=== PATIENT | female | born 1990 | race Two or more races ===

== ENCOUNTER 2025-06-11 10:25 | Inpatient (IN) | payer MEDICAID, OTHER ==
[~2025-06-11] VITALS: Ht 167.6 cm; Wt 77.8 kg
--- NOTE | 2025-06-11 10:43 | ED.PDOC ---
GI ASSESSMENT HPI Comments 35-year-old female who comes in with chief complaint of left lower quadrant and left upper quadrant pain that seems to have somewhat radiate towards the back. The patient states that the symptoms started approximately 1-1/2 weeks ago. She states that the pain is a 9/10. She does have a history of pancreatitis and states that the pain feels somewhat similar. The patient is also having some nausea and vomiting as well as some diarrhea and constipation somewhat off and on. She has some night sweats and chills and so she came to the emergency department's for evaluation at this time. Chief Complaint: Abdominal Pain Time Seen by MD: 10:30 Reviewed Notes: Nurses Notes, Medications, Allergies (No allergies to medications) Allergies: Coded Allergies: NO KNOWN ALLERGIES (Unverified , 06/11/25) Information Source: Patient Mode of Arrival: Ambulatory Timing: Days Duration: Since onset Prehospital treatment: None Quality: Aching, Cramping Vomitus: Bilious Stool: Watery Severity: Moderate Recent: None Recent Hx of: None Pain Location: LUQ, LLQ Modifying Factors: Nothing Associated sign and symptoms: Nausea, Vomiting, Diarrhea, Constipation, Abdominal Pain Past Medical History PAST MEDICAL HISTORY: Seizures Past Medical History (Other): Pancreatitis 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 Family History Family History: No family hx of Cancer, No family hx of DM, No family hx of Heart marie, No family hx of HTN Social History Smoker: Cigarettes Alcohol: Denies ETOH Use Drugs: Denies Drug Use Lives In: Home Constitutional: reports: chills, diaphoresis; denies: fatigue, fever, malaise, sweats, weakness, others EENTM: denies: blurred vision, double vision, ear bleeding, ear discharge, ear drainage, ear pain, ear ringing, eye pain, eye redness, hearing loss, mouth pain, mouth swelling, nasal discharge, nose bleeding, nose congestion, nose pain, photophobia, tearing, throat pain, throat swelling, voice changes, others Respiratory: denies: cough, hemoptysis, orthopnea, SOB at rest, shortness of breath, SOB with excertion, stridor, wheezing, others Cardiovascular: denies: chest pain, dizzy spells, diaphoresis, Dyspnea on exertion, edema, irregular heart beat, left arm pain, lightheadedness, palpitations, PND, syncope, others Gastrointestinal: reports: abdominal pain, nausea, vomiting; denies: abdomen distended, blood streaked bowels, constipated, diarrhea, dysphagia, difficulty swallowing, hematemesis, melena, poor appetite, poor fluid intake, rectal bleeding, rectal pain, others Genitourinary: denies: abnormal vagina bleeding, burning, dyspareunia, dysuria, flank pain, frequency, hematuria, incontinence, pain, , vagina dis charge, urgency, others Neurological: denies: dizziness, fainting, headache, left sided numbness, left sided weakness, numbness, paresthesia, pre-existing deficit, right sided numbness, right sided weakness, seizure, speech problems, tingling, tremors, weakness, others Musculoskeletal: denies: back pain, gout, joint pain, joint swelling, muscle pain, muscle stiffness, neck pain, others Integumetry: denies: bruises, change in color, change in hair/nails, dryness, laceration, lesions, lumps, rash, wounds, others Allergic/Immunocompromised: denies: Difficulty Healing, Frequent Infections, Hives, Itching, others Hematologic/Lymphatic: denies: anemia, blood clots, easy bleeding, easy bruising, swollen glands, others Endocrine: denies: excessive hunger, excessive sweating, excessive thirst, excessive urination, flushing, intolerance to cold, intolerance to heat, unexplained weight gain, unexplained weight loss, others Psychiatric: denies: anxiety, bipolar disorder, depression, hopeless, panic disorder, schizophrenia, sleepless, suicidal, others Physical Exam General Appearance: Moderate Distress HEENT: Normal ENT Inspection, Pharynx Normal, TMs Normal Neck: Full Range of Motion, Non-Tender, Normal, Normal Inspection Respiratory: Chest Non-Tender, Lungs Clear, No Accessory Muscle Use, No Respiratory Distress, Normal Breath Sounds Cardiovascular: No Edema, No JVD, No Murmur, No Gallop, Normal Peripheral Pulses, Regular Rate/Rhythm Breast Exam: Deferred Gastrointestinal: LLQ, LUQ, No Organomegaly, No Pulsatile Mass, Normal Bowel Sounds, Soft, Tenderness Genitalia: Deferred Pelvic: Deferred Rectal: Deferred Extremities: No calf tenderness, Normal capillary refill, Normal inspection, Normal range of motion, Non-tender, No pedal edema Musculoskeletal : Apperance: Normal Neurologic: Alert, guest service manager II-XII nml as Tested, No Motor Deficits, Normal Affect, Normal Mood, No Sensory Deficits Cerebellar Function: Normal Reflexes: Normal Skin: Dry, Normal Color, Warm Lymphatic: No Adenopathy Was a procedure done? Was a procedure done?: No GI differential Dx Differential Diagnosis: Appendicitis, Gastritis/PUD, Gastroenteritis, UTI, Urolithiasis X-Ray, Labs, Meds, VS Vital Signs Date Time Temp Pulse Resp B/P (MAP) Pulse Ox O2 Delivery O2 Flow Rate FiO2 06/11/25 11:25 83 18 106/74 06/11/25 11:22 83 18 99 Room Air 06/11/25 11:22 97.6 83 18 106/74 (85) 99 97.6 06/11/25 10:27 98.1 87 16 109/66 98 98.1 Lab Test 06/11/25 11:29 06/11/25 11:18 Range/Units Urine Color Light-yellow Yellow Urine Clarity Clear Clear Urine pH 6.0 5.0-9.0 Urine Specific [place] 1.009 1.001-1.035 Urine Protein Negative Negative Urine Ketones Negative Negative Urine Blood 1+ H Negative /uL Urine Nitrite Negative Negative Urine Bilirubin Negative Negative Urine Urobilinogen Normal Negative mg/dL Urine Leukocyte Esterase Trace Negative /uL Urine RBC 3 0 - 4 /hpf Urine Microscopic WBC 1 0-5 /HPF Urine Squamous Epithelial Cells Mod <5 /hpf Urine Bacteria Few H None Seen /hpf Urine Glucose Normal Normal mg/dL White Blood Count 5.6 4.4-10.8 10^3/uL Red Blood Count 4.67 4.0-5.20 10^6/uL Hemoglobin 13.9 12.2-16.2 g/dL Hematocrit 40.1 36.0-46.0 % Mean Corpuscular Volume 85.7 80.0-100.0 fL Mean Corpuscular Hemoglobin 29.8 28.0-32.0 pg Mean Corpuscular Hemoglobin Concent 34.8 32.0-36.0 g/dL Red Cell Distribution Width 12.8 11.8-14.3 % Platelet Count 287 140-450 10^3/uL Mean Platelet Volume 7.3 6.9-10.8 fL Neutrophils (%) (Auto) 62.9 37.0-80.0 % Lymphocytes (%) (Auto) 30.1 10.0-50.0 % Monocytes (%) (Auto) 6.4 0.0-12.0 % Eosinophils (%) (Auto) 0.1 0.0-7.0 % Basophils (%) (Auto) 0.5 0.0-2.0 % Neutrophils # (Auto) 3.5 1.6-8.6 10 ^3/uL Lymphocytes # (Auto) 1.7 0.4-5.4 10 ^3/uL Monocytes # (Auto) 0.4 0-1.3 10 ^3/uL Eosinophils # (Auto) 0 0-0.8 10 ^3/uL Basophils # (Auto) 0 0-0.2 10 ^3/uL Nucleated Red Blood Cells 0.0 % Sodium Level 139 136-145 mmol/L Potassium Level 4.1 3.5-5.1 mmol/L Chloride Level 105 98-107 mmol/L Carbon Dioxide Level 24 20-31 mmol/L Anion Gap 10 5-15 Blood Urea Nitrogen 9 9-23 mg/dL Creatinine 0.71 0.550-1.02 mg/dL Glomerular Filtration Rate Calc 114 >90 mL/min BUN/Creatinine Ratio 12.7 10.0-20.0 Serum Glucose 91 74-106 mg/dL Calcium Level 9.4 8.7-10.4 mg/dL Total Bilirubin 0.2 0.2-1.0 mg/dL Aspartate Amino Transferase (AST) 22 13-40 U/L Alanine Aminotransferase (ALT) 19 7-40 U/L Alkaline Phosphatase 107 46-116 U/L Total Protein 7.6 5.7-8.2 g/dL Albumin 4.7 3.2-4.8 g/dL Lipase 42 12-53 U/L Current Medications Medications (Trade) Dose Ordered Sig/Calderon Route Start Time Stop Time Status Last Admin Ondansetron HCl (Zofran) 4 mg ONCE ONCE IV 06/11/25 10:45 06/11/25 10:46 DC 06/11/25 11:24 Sodium Chloride 1,000 ml @ 1,000 mls/hr Q1H ONCE IVB 06/11/25 10:45 06/11/25 11:44 DC 06/11/25 11:25 Morphine Sulfate 4 mg ONCE ONCE IV 06/11/25 10:45 06/11/25 10:46 DC 06/11/25 11:25 Pantoprazole Sodium (Protonix) 40 mg ONCE ONCE IV 06/11/25 10:45 06/11/25 10:46 DC 06/11/25 11:24 CAT scan of the abdomen and pelvis shows: IMPRESSION: 1. Nonspecific nondilated fluid-filled small bowel loops. Findings may be seen with ileus or enteritis in the appropriate clinical setting. No small bowel obstruction. 2. Moderate stool in the colon. The patient was given normal saline as a 1 L bolus. The patient was given Zofran 4 mg IV push for the nausea The patient was given Protonix 40 mg IV push The patient was given morphine 4 mg IV push for the pain The patient's CBC and chemistry panel are within normal limits. The urine test is negative for any infection At this time, the patient is still having persistent abdominal pain The patient is being admitted at this time Images Reviewed?: Images reviewed and evaluated by me Time of 1ST Reevaluation: 10:43 Reevaluation 1ST: Unchanged Patient Education/Counseling: Diagnosis, Treatment, Prognosis Family Education/Counseling: No Family Present SEPSIS Sepsis Screen Date sepsis recognized/suspect: Jun 11, 2025 Time Sepsis recognized/suspect: 1030 Recent Procedure: No On Antibiotic Therapy: No Respiratory Rate >20: No Heart Rate >90: No Temp<36 C (96.8 F) or >38.3 C: No SBP <90 or MAP <65 mmHG: No New Acute Mental Status Change: No Is the patient on CPAP, BIPAP,: No Physician Orders Ct Ab Pel Wo Con-No Oral Or Iv (06/11/25 10:37) Heplock Iv (06/11/25 10:37) Travel Administrator (06/11/25 10:37) Blood Pressure (06/11/25 10:37) Pulse Oximetry (06/11/25 10:37) Vital Signs Date Time Temp Pulse Resp B/P (MAP) Pulse Ox O2 Delivery O2 Flow Rate FiO2 06/11/25 11:25 83 18 106/74 06/11/25 11:22 83 18 99 Room Air 06/11/25 11:22 97.6 83 18 106/74 (85) 99 97.6 06/11/25 10:27 98.1 87 16 109/66 98 98.1 Laboratory Tests Test 06/11/25 11:18 White Blood Count 5.6 10^3/uL (4.4-10.8) Medications Medications Dose Ordered Sig/Calderon Route Start Time Stop Time Status Last Admin Dose Admin Morphine Sulfate 4 mg ONCE ONCE IV 06/11/25 10:45 06/11/25 10:46 DC 06/11/25 11:25 Ondansetron HCl 4 mg ONCE ONCE IV 06/11/25 10:45 06/11/25 10:46 DC 06/11/25 11:24 Pantoprazole Sodium 40 mg ONCE ONCE IV 06/11/25 10:45 06/11/25 10:46 DC 06/11/25 11:24 Sodium Chloride 1,000 ml @ 1,000 mls/hr Q1H ONCE IVB 06/11/25 10:45 06/11/25 11:44 DC 06/11/25 11:25 Departure 1 Departure Time of Disposition: 12:55 Impression: Primary Impression: Intractable abdominal pain Disposition: ADMITTED INPATIENT Admit to: Med Surg Condition: Fair Critical Care Note Critical Care Time?: No Stability Stability form required: Yes Unstable for transfer: ED Physician Assesment (Clinical assesment) Heart Score Heart Score: Heart Score Response (Comments) Value History N/A 0 EKG N/A 0 Age N/A 0 Risk Factors N/A 0 Troponin N/A 0 Total 0 GRIFFIN TUCKER MD Jun 11, 2025 10:43
[2025-06-11] MEDS: ONDANSETRON HCL 4 MG/2 ML VIAL IV ONE (11:24)
[2025-06-11] MEDS: PANTOPRAZOLE 40 MG/10 ML VIAL INJ IV ONE (11:24)
[2025-06-11] MEDS: SODIUM CHLORIDE 0.9% 1,000 ML IVB ONE (11:25)
[2025-06-11] MEDS: MORPHINE SULFATE 4 MG/ML SYR/VIAL IV ONE (11:25)
[2025-06-11 11:27] LABS: Hematocrit 40.1 % (36.0-46.0); Hemoglobin 13.9 g/dL (12.2-16.2); Mean Corpuscular Hemoglobin 29.8 pg (28.0-32.0); Mean Corpuscular Volume 85.7 fL (80.0-100.0); Nucleated Red Blood Cells % 0.0 %
--- NOTE | 2025-06-11 11:39 | DVH ---
CLINICAL INFORMATION: Pain. TECHNIQUE: Axial CT images of the abdomen and pelvis were obtained without IV contrast. Coronal and s agittal reformatted images were obtained, reviewed, and stored. Evaluation of the parenchymal organs is limited without IV contrast. Evaluation of the bowel and mesentery is limited without oral contras t. All CT scans at this medical facility are performed using dose modulation techniques as appropriat e to a performed exam including the following: Automated exposure control was utilized; adjustment of the MA and/or KV according to patient size; and use of iterative reconstruction technique. CTDIvol = 14.01 mGy DLP = 754.61 mGy-cm COMPARISON: None FINDINGS: Lung bases: Lung bases are clear. Liver: Grossly unremarkable in its noncontrast enhanced appearance. No abnormal density or focal lesi on identified. Biliary: Gallbladder is partially contracted. No calcified gallstones visualized. Spleen: Unremarkable. Pancreas: Grossly unremarkable in its noncontrast enhanced appearance. Adrenal glands: Unremarkable. No mass. Kidneys: No hydronephrosis. No renal or ureteral calculi. Aorta/Vascular: No aneurysm or significant calcification. Lymph nodes: No mass or lymphadenopathy. Bowel/mesentery: Nonspecific nondilated fluid-filled small bowel loops. No small bowel obstruction. A ppendix is visualized and appears unremarkable. Moderate stool in the colon. Pelvic organs: Uterus is anteverted. Bladder: Unremarkable. No mass. Abdominal wall: No mass or hernia. Bones: No acute fracture or suspicious intraosseous lesion. IMPRESSION: 1. Nonspecific nondilated fluid-filled small bowel loops. Findings may be seen with ileus or enteriti s in the appropriate clinical setting. No small bowel obstruction. 2. Moderate stool in the colon. 3. Additional nonacute findings as described above.
[2025-06-11 11:43] LABS: Alanine Aminotransferase 19 U/L (7-40); Albumin 4.7 g/dL (3.2-4.8); Alkaline Phosphatase 107 U/L (46-116); Anion Gap 10 (5-15); BUN/Creatinine Ratio 12.7 (10.0-20.0); Blood Urea Nitrogen 9 mg/dL (9-23); Calcium 9.4 mg/dL (8.7-10.4); Carbon Dioxide 24 mmol/L (20-31); Chloride 105 mmol/L (98-107); Glucose 91 mg/dL (74-106); Lipase 42 U/L (12-53); Potassium 4.1 mmol/L (3.5-5.1); Sodium 139 mmol/L (136-145); Total Protein 7.6 g/dL (5.7-8.2)
[2025-06-11 11:44] LABS: Bilirubin, Total 0.2 mg/dL (0.2-1.0)
[2025-06-11 12:08] LABS: Urine Protein, UAD Negative (Negative)
[2025-06-11] MEDS ORDERED: KEP500T PO (13:38)
[2025-06-11] MEDS ORDERED: LORA-1123 PO (13:38)
[2025-06-11] MEDS ORDERED: CITA-77 PO (13:38)
[2025-06-11] MEDS ORDERED: ARIP5TAB22 PO (13:38)
[2025-06-11] MEDS ORDERED: PATIENTS OWN MEDICATION (Lorazepam 1 TAB) PO PRN (13:45)
--- NOTE | 2025-06-11 13:54 | DVHHP2 ---
History of Present Illness Reason for Visit: Abdominal pain History of Present Illness Negrita Wilkinson is a 35-year-old female with past medical history of seizure, depression, and anxiety, who came to the hospital for abdominal pain. Patient states the pain began about 1 week ago. It is in her left upper quadrant and radiates to her back and down her leg. She has a history of pancreatitis, she thought this felt similar. CT of abdomen/Pelvis was completed in ER, no pancreatitis noted, lipase within normal range. CT did show fluid-filled small bowel loops. 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 Psych: Anxiety, Depression Past Surgical History: Tubal Ligation Smoke: <1 pack per day ALCOHOL: none Drugs: None Lives: with Family Domestic Violence: Neg Review of Systems Constitutional: No: Fever, Chills, Sweats, Weakness, Malaise, Other Eyes: No: Pain, Vision change, Conjunctivae inflammation, Eyelid inflammation, Other, Redness ENT: No: Ear pain, Ear discharge, Nose pain, Nose discharge, Nose congestion, Mouth pain, Mouth swelling, Throat pain, Throat swelling, Other Respiratory: No: Cough, Dry, Shortness of breath, SOB with excertion, Wheezing, Hemoptysis, Pleuritic Pain, Sputum, Wheezing, Other Cardiovascular: No: Chest Pain, Palpitations, Orthopnea, Paroxysmal Noc. Dyspnea, Edema, Lt Headedness, Other Gastrointestinal: Nausea, Vomiting, Abdominal Pain (left upper quadrant that radiates to her back, and down her leg); No: Diarrhea, Constipation, Melena, Hematochezia, Other Genitourinary: No Dysuria, No Frequency, No Incontinence, No Hematuria, No Retention, No Other Musculoskeletal: No: other, neck pain, shoulder pain, arm pain, back pain, hand pain, leg pain, foot pain Skin: No: Rash, Lesions, Jaundice, Bruising, Other Neurological: No: Weakness, Numbness, Incoordination, Change in speech, Confusi on, Seizures, Other Allergies: Coded Allergies: NO KNOWN ALLERGIES (Unverified , 06/11/25) Exam Vital Signs Vital Signs Date Time Temp Pulse Resp B/P (MAP) Pulse Ox O2 Delivery O2 Flow Rate FiO2 06/11/25 11:25 83 18 106/74 06/11/25 11:22 99 Room Air 06/11/25 11:22 97.6 97.6 General Appearance: Alert, Oriented X3, Cooperative, mild distress HEENT: Atraumatic, PERRLA Respiratory: Clear to auscultation, Normal air movement Cardiovascular: Regular rate, Normal S1, Normal S2 Abdominal: Normal bowel sounds, Soft, Other (left upper quadrant tenderness) Extremities: No clubbing, No cyanosis, No edema, Normal pulses, No tenderness/swelling Skin: No rashes, No breakdown, No significant lesion Neuro: Normal gait, Normal speech, Strength at 5/5 X4 ext, Normal tone Psych/Mental Status: Mental status NL, Mood NL Labs/Xrays Labs Test 06/11/25 11:29 06/11/25 11:18 Range/Units Urine Color Light-yellow Yellow Urine Clarity Clear Clear Urine pH 6.0 5.0-9.0 Urine Specific [place] 1.009 1.001-1.035 Urine Protein Negative Negative Urine Ketones Negative Negative Urine Blood 1+ H Negative /uL Urine Nitrite Negative Negative Urine Bilirubin Negative Negative Urine Urobilinogen Normal Negative mg/dL Urine Leukocyte Esterase Trace Negative /uL Urine RBC 3 0 - 4 /hpf Urine Microscopic WBC 1 0-5 /HPF Urine Squamous Epithelial Cells Mod <5 /hpf Urine Bacteria Few H None Seen /hpf Urine Glucose Normal Normal mg/dL White Blood Count 5.6 4.4-10.8 10^3/uL Red Blood Count 4.67 4.0-5.20 10^6/uL Hemoglobin 13.9 12.2-16.2 g/dL Hematocrit 40.1 36.0-46.0 % Mean Corpuscular Volume 85.7 80.0-100.0 fL Mean Corpuscular Hemoglobin 29.8 28.0-32.0 pg Mean Corpuscular Hemoglobin Concent 34.8 32.0-36.0 g/dL Red Cell Distribution Width 12.8 11.8-14.3 % Platelet Count 287 140-450 10^3/uL Mean Platelet Volume 7.3 6.9-10.8 fL Neutrophils (%) (Auto) 62.9 37.0-80.0 % Lymphocytes (%) (Auto) 30.1 10.0-50.0 % Monocytes (%) (Auto) 6.4 0.0-12.0 % Eosinophils (%) (Auto) 0.1 0.0-7.0 % Basophils (%) (Auto) 0.5 0.0-2.0 % Neutrophils # (Auto) 3.5 1.6-8.6 10 ^3/uL Lymphocytes # (Auto) 1.7 0.4-5.4 10 ^3/uL Monocytes # (Auto) 0.4 0-1.3 10 ^3/uL Eosinophils # (Auto) 0 0-0.8 10 ^3/uL Basophils # (Auto) 0 0-0.2 10 ^3/uL Nucleated Red Blood Cells 0.0 % Sodium Level 139 136-145 mmol/L Potassium Level 4.1 3.5-5.1 mmol/L Chloride Level 105 98-107 mmol/L Carbon Dioxide Level 24 20-31 mmol/L Anion Gap 10 5-15 Blood Urea Nitrogen 9 9-23 mg/dL Creatinine 0.71 0.550-1.02 mg/dL Glomerular Filtration Rate Calc 114 >90 mL/min BUN/Creatinine Ratio 12.7 10.0-20.0 Serum Glucose 91 74-106 mg/dL Calcium Level 9.4 8.7-10.4 mg/dL Total Bilirubin 0.2 0.2-1.0 mg/dL Aspartate Amino Transferase (AST) 22 13-40 U/L Alanine Aminotransferase (ALT) 19 7-40 U/L Alkaline Phosphatase 107 46-116 U/L Total Protein 7.6 5.7-8.2 g/dL Albumin 4.7 3.2-4.8 g/dL Lipase 42 12-53 U/L TECHNIQUE: Axial CT images of the abdomen and pelvis were obtained without IV contrast. FINDINGS: Lung bases: Lung bases are clear. Liver: Grossly unremarkable in its noncontrast enhanced appearance. No abnormal density or focal lesion identified. Biliary: Gallbladder is partially contracted. No calcified gallstones visualized. Spleen: Unremarkable. Pancreas: Grossly unremarkable in its noncontrast enhanced appearance. Adrenal glands: Unremarkable. No mass. Kidneys: No hydronephrosis. No renal or ureteral calculi. Aorta/Vascular: No aneurysm or significant calcification. Lymph nodes: No mass or lymphadenopathy. Bowel/mesentery: Nonspecific nondilated fluid-filled small bowel loops. No small bowel obstruction. Appendix is visualized and appears unremarkable. Moderate stool in the colon. Pelvic organs: Uterus is anteverted. Bladder: Unremarkable. No mass. Abdominal wall: No mass or hernia. Bones: No acute fracture or suspicious intraosseous lesion. IMPRESSION: 1. Nonspecific nondilated fluid-filled small bowel loops. Findings may be seen with ileus or enteritis in the appropriate clinical setting. No small bowel obstruction. 2. Moderate stool in the colon. 3. Additional nonacute findings as described above. SEPSIS Sepsis Screen Date sepsis recognized/suspect: Jun 11, 2025 Time Sepsis recognized/suspect: 1030 Recent Procedure: No On Antibiotic Therapy: No Respiratory Rate >20: No Heart Rate >90: No Temp<36 C (96.8 F) or >38.3 C: No SBP <90 or MAP <65 mmHG: No New Acute Mental Status Change: No Is the patient on CPAP, BIPAP,: No Physician Orders Ct Ab Pel Wo Con-No Oral Or Iv (06/11/25 10:37) Heplock Iv (06/11/25 10:37) Forge Heater (06/11/25 10:37) Blood Pressure (06/11/25 10:37) Pulse Oximetry (06/11/25 10:37) Admit (06/11/25 13:33) Code Status (06/11/25 13:33) Hydrocodone-Acet 5/325mg Tab ([place] 5/32 (06/11/25 13:45) Ondansetron Hcl (Zofran) (06/11/25 13:45) Docusate Sodium Capsule (Colace Capsule) (06/11/25 13:45) Complete Blood Count (06/12/25 04:00) Comprehensive Metabolic Panel (06/12/25 04:00) Condition: Serious (06/11/25 13:33) Acetaminophen Tablet (Tylenol Tablet) (06/11/25 13:45) Clear Liq Diet (06/11/25 Dinner) Citalopram Tablet (Celexa Tablet) (06/12/25 10:00) Levetiracetam Tablet (Keppra Tablet) (06/11/25 22:00) (Nf) Aripiprazole (06/11/25 22:00) (Nf) Lorazepam (06/11/25 13:45) Vital Signs Date Time Temp Pulse Resp B/P (MAP) Pulse Ox O2 Delivery O2 Flow Rate FiO2 06/11/25 11: 83 18 106/74 06/11/25 11: 83 18 99 Room Air 06/11/25 11:22 97.6 83 18 106/74 (85) 99 97.6 06/11/25 10:27 98.1 87 16 109/66 98 98.1 Laboratory Tests Test 06/11/25 11:18 White Blood Count 5.6 10^3/uL (4.4-10.8) Medications Medications Dose Ordered Sig/Calderon Route Start Time Stop Time Status Last Admin Dose Admin Morphine Sulfate 4 mg ONCE ONCE IV 06/11/25 10:45 06/11/25 10:46 DC 06/11/25 11:25 4 MG Ondansetron HCl 4 mg ONCE ONCE IV 06/11/25 10:45 06/11/25 10:46 DC 06/11/25 11:24 4 MG Pantoprazole Sodium 40 mg ONCE ONCE IV 06/11/25 10:45 06/11/25 10:46 DC 06/11/25 11:24 40 MG Sodium Chloride 1,000 ml @ 1,000 mls/hr Q1H ONCE IVB 06/11/25 10:45 06/11/25 11:44 DC 06/11/25 11:25 1,000 MLS/HR Assessment/Plan Assessment/Plan Assessment: Intractable abdominal pain, Possible enteritis, constipation, Seizures, Depression, Anxiety, Plan: Admit to Med-Surg, IV antibiotics, Clear liquid diet, IV hydration, Seizure precautions, Home medications reconciled, Plan discussed with: Patient My Orders Orders - KAREEM AUSTIN [employer]M CONSULTANT Procedure Category Date Status Time Admit ADMIT 06/11/25 Transmitted 13:33 Code Status CODE 06/11/25 Transmitted 13:33 Hydrocodone-Acet PHA 06/11/25 Transmitted 5/325mg Tab ([place] 13:45 Ondansetron Hcl PHA 06/11/25 Transmitted (Zofran) 13:45 Docusate Sodium PHA 06/11/25 Transmitted Capsule (Colace 13:45 Complete Blood Count LAB 06/12/25 Verified 04:00 Comprehensive LAB 06/12/25 Verified Metabolic Panel 04:00 Condition: Serious PERRY 06/11/25 Transmitted 13:33 Acetaminophen Tablet PHA 06/11/25 Transmitted (Tylenol Tablet) 13:45 Clear Liq Diet DIET 06/11/25 Transmitted Dinner Citalopram Tablet PHA 06/12/25 Verified (Celexa Tablet) 10:00 Levetiracetam Tablet PHA 06/11/25 Verified (Keppra Tablet) 22:00 (Nf) Aripiprazole PHA 06/11/25 Verified 22:00 (Nf) Lorazepam PHA 06/11/25 Verified 13:45 Date of Service: Jun 11, 2025 Billing Provider: KAREEM AUSTIN Common Visit Codes: [id number] INP/OBS CARE (MOD) KAREEM AUSTIN Jun 11, 2025 13:54
[2025-06-11] MEDS ORDERED: LORazepam 0.5 MG TAB PO PRN (14:15)
[2025-06-11 14:19] VITALS: BP 103/70; PULSE 64; RESP 20; TEMP 97.9; O2SAT 100
[2025-06-11] MEDS: levETIRAcetam 500 MG TAB PO SCH (14:20)
[2025-06-11] MEDS: SODIUM CHLORIDE 0.9% 1,000 ML IV ONE ×2 (14:23→15:57)
[2025-06-11] MEDS: HYDROcodone-ACET 5/325MG TAB PO PRN (16:14)
[2025-06-11] MEDS ORDERED: ARIP2TAB PO (16:44)
[2025-06-11] MEDS ORDERED: MULT-1018 PO (16:44)
[2025-06-11 17:00] VITALS: BP 92/53; PULSE 73; RESP 18; TEMP 97.9; O2SAT 100
[2025-06-11] MEDS: ACETAMINOPHEN 325 MG TAB PO PRN (18:23)
[2025-06-11 20:20] VITALS: BP 92/51; PULSE 73; RESP 15; TEMP 97.9; O2SAT 97
[2025-06-11 20:25] VITALS: PULSE 74; RESP 16; O2SAT 97
[2025-06-11 21:00] VITALS: BP 86/51; PULSE 80; RESP 16; TEMP 97.9; O2SAT 99
[2025-06-11] MEDS ORDERED: METO5INJ IJ (21:14)
[2025-06-11] MEDS ORDERED: OMEP20TA PO (21:14)
[2025-06-11] MEDS ORDERED: DIPH50TA9 PO (21:14)
[2025-06-11] MEDS ORDERED: DICY10CA PO (21:14)
[2025-06-11] MEDS ORDERED: THIA100T10 (21:14)
[2025-06-11] MEDS ORDERED: LORA-622 PO (21:14)
[2025-06-11] MEDS ORDERED: FOLITAB22 PO (21:14)
[2025-06-11] MEDS ORDERED: levETIRAcetam 500 MG TAB PO SCH (22:00)
[2025-06-11] MEDS ORDERED: PATIENTS OWN MEDICATION (Aripiprazole 1 TAB) PO SCH (22:00)
[2025-06-12] VITALS (8 sets, daily range): BP systolic 93–101; BP diastolic 47–67; PULSE 63–82; RESP 16–18; TEMP 97.7–98.8; O2SAT 97–99
[2025-06-12] MEDS: KETOROLAC TROMETH 30 MG/ML 1ML VIAL IV ONE (01:07)
[2025-06-12] MEDS: MORPHINE SULFATE 4 MG/ML SYR/VIAL IV PRN (05:51)
[2025-06-12 05:56] LABS: Hematocrit 36.0 % (36.0-46.0); Hemoglobin 12.3 g/dL (12.2-16.2); Mean Corpuscular Hemoglobin 29.8 pg (28.0-32.0); Mean Corpuscular Volume 87.2 fL (80.0-100.0); Nucleated Red Blood Cells % 0.1 %
[2025-06-12 06:19] LABS: Alanine Aminotransferase 15 U/L (7-40); Albumin 3.5 g/dL (3.2-4.8); Alkaline Phosphatase 65 U/L (46-116); Anion Gap 8 (5-15); BUN/Creatinine Ratio 11.6 (10.0-20.0); Bilirubin, Total 0.5 mg/dL (0.2-1.0); Carbon Dioxide 24 mmol/L (20-31); Glucose 93 mg/dL (74-106); Potassium 4.5 mmol/L (3.5-5.1); Sodium 142 mmol/L (136-145); Total Protein 5.7 g/dL (5.7-8.2)
[2025-06-12 06:30] LABS: Blood Urea Nitrogen 8 mg/dL (9-23); Calcium 8.1 mg/dL (8.7-10.4); Chloride 110 mmol/L (98-107)
[2025-06-12] MEDS: CITALOPRAM HYDROBR 20 MG TAB PO SCH (09:30)
[2025-06-12] MEDS: ONDANSETRON HCL 4 MG/2 ML VIAL IV PRN (11:45)
--- NOTE | 2025-06-12 13:46 | DVHPN2 ---
Reviewed: Care Plan, H&P, Labs, Medications, Previous Orders, Radiology Changes from previous H/P or p: No Changes General: Per HPI Eyes: No Pain, No Vision change, No Conjunctivae inflammation, No Eyelid inflammation, No Other, No Redness ENT: No Ear pain, No Ear discharge, No Nose pain, No Nose discharge, No Nose congestion, No Mouth pain, No Mouth swelling, No Throat pain, No Throat swelling, No Other Cardiovascular: No Chest Pain, No Palpitations, No Orthopnea, No Paroxysmal Noc. Dyspnea, No Edema, No Lt Headedness, No Other Respiratory: No Cough, No Dry, No Shortness of breath, No SOB with excertion, No Wheezing, No Hemoptysis, No Pleuritic Pain, No Sputum, No Other Gastrointestinal: Nausea, Vomiting, Abdominal Pain (left upper quadrant that radiates to her back, and down her leg); No Diarrhea, No Constipation, No Melena, No Hematochezia, No Other Genitourinary: No Dysuria, No Frequency, No Incontinence, No Hematuria, No Retention, No Other Musculoskeletal: No other, No neck pain, No shoulder pain, No arm pain, No back pain, No hand pain, No leg pain, No foot pain Skin: No Rash, No Lesions, No Jaundice, No Bruising, No Other Objective Vitals Vital Signs Date Time Temp Pulse Resp B/P (MAP) Pulse Ox O2 Delivery O2 Flow Rate FiO2 06/12/25 12:41 97.9 70 18 95/67 (76) 97 97.9 06/11/25 20:25 Room Air* 0 21 Intake/Output Intake and Output 06/12/25 07:00 Intake Total 5160 ml Balance 5160 ml Intake Oral 1160 ml IV Total 4000 ml # Voids 2 General Appearance: Alert, Oriented X3, Cooperative Cardiovascular: Normal S1, Normal S2 Medications Current Medications Medications Dose Ordered Sig/Calderon Route Start Time Stop Time Status Last Admin Dose Admin Acetaminophen/ Hydrocodone Bitart 1 tab Q4HP PRN PO 06/11/25 13:45 06/12/25 09:24 1 TAB Ondansetron HCl 4 mg Q4HP PRN IV 06/11/25 13:45 06/12/25 11:45 4 MG Docusate Sodium 100 mg BIDPRN PRN PO 06/11/25 13:45 Acetaminophen 650 mg Q6HP PRN PO 06/11/25 13:45 06/11/25 18:23 650 MG Citalopram Hydrobromide 20 mg DAILY PO 06/12/25 10:00 06/12/25 09:30 20 MG Levetiracetam 500 mg BID PO 06/11/25 14:06 06/12/25 09:30 500 MG Patient Own Medication 1 tab HS PO 06/11/25 22:00 06/11/25 21:50 1 TAB Lorazepam 1 mg Q8HP PRN PO 06/11/25 14:15 Morphine Sulfate 2 mg Q4HPRN PRN IV 06/11/25 16:45 06/12/25 11:45 2 MG Laboratory Results Laboratory Tests 06/12/25 05:35 Chemistry Test 06/12/25 05:35 Albumin 3.5 g/dL (3.2-4.8) Calcium Level 8.1 mg/dL (8.7-10.4) L Total Protein 5.7 g/dL (5.7-8.2) LFT Test 06/12/25 05:35 Alanine Aminotransferase (ALT) 15 U/L (7-40) Alkaline Phosphatase 65 U/L (46-116) Aspartate Amino Transferase (AST) 19 U/L (13-40) Total Bilirubin 0.5 mg/dL (0.2-1.0) Urinalysis Test 06/11/25 11:29 Urine Color Light-yellow (Yellow) Urine Clarity Clear (Clear) Urine pH 6.0 (5.0-9.0) Urine Specific [place] 1.009 (1.001-1.035) Urine Protein Negative (Negative) Urine Ketones Negative (Negative) Urine Blood 1+ /uL (Negative) H Urine Nitrite Negative (Negative) Urine Bilirubin Negative (Negative) Urine Urobilinogen Normal mg/dL (Negative) Urine Leukocyte Esterase Trace /uL (Negative) Urine RBC 3 /hpf (0 - 4) Urine Microscopic WBC 1 /HPF (0-5) Urine Squamous Epithelial Cells Mod /hpf (<5) Urine Bacteria Few /hpf (None Seen) H Urine Glucose Normal mg/dL (Normal) Labs and/or images reviewed: Labs reviewed by me, Image(s) reviewed by me Assessment/Plan Assessment/Plan Intractable abdominal pain, Possible enteritis, constipation, Seizures, Depression, Anxiety suspected ileus vs SBO intractable nausea/vomiting 10/07//2025 advancing diet as tolerated Gen surg consulted if needed Plan discussed with: Patient My Orders Orders - JENN ABBOTT DO Procedure Category Date Status Time * Surgical Consult CONS 06/12/25 Transmitted Date of Service: Jun 12, 2025 Billing Provider: JENN ABBOTT DO Common Visit Codes: [id number] INP/OBS CARE(HIGH) JENN ABBOTT DO Jun 12, 2025 13:46
[2025-06-12] MEDS: SODIUM CHLORIDE 0.9% 1,000 ML IV SCH (14:00)
[2025-06-13] VITALS (8 sets, daily range): BP systolic 82–105; BP diastolic 56–72; PULSE 59–79; RESP 15–18; TEMP 97.5–98.1; O2SAT 97–100
[2025-06-13] MEDS: SODIUM CHLORIDE 0.9% 1,000 ML IV ONE ×2 (01:23→16:52)
[2025-06-13] MEDS: SODIUM CHLORIDE 0.9% 500 ML IV ONE (08:45)
[2025-06-13] MEDS: KETOROLAC TROMETH 30 MG/ML 1ML VIAL IV ONE (08:45)
[2025-06-13] MEDS: METOCLOPRAMIDE HCL 5MG/ml INJ 2ml VIAL IV PRN (15:58)
[2025-06-13] MEDS: KETOROLAC TROMETH 30 MG/ML 1ML VIAL IV PRN (15:58)
[2025-06-13] MEDS: GADOTERATE MEG 10 MMOL/20ml INJ (0.5MMOL/ml) IV ONE (16:53)
--- NOTE | 2025-06-13 17:21 | DVH ---
EXAM: MRI MRI ABDOMEN W AND WO HISTORY: abd pain with n/v COMPARISON: CT CT AB PEL WO CON-NO ORAL OR IV on DOS: 06/11/25 TECHNIQUE: Multiplanar, multisequence imaging of the abdomen was performed with and without contrast. 15 mL of Clariscan was administered without adverse effect. FINDINGS: [LOWER CHEST]: No pleural effusion. [LIVER]: The liver is normal in size without focal lesions. Normal liver contour. [SPLEEN]: Unremarkable. [PANCREAS]: The pancreas is normal in appearance without focal lesions. Normal pancreatic duct size. [GALLBLADDER AND DUCTS]: Gallbladder is normal in appearance. The cystic duct, right and left hepatic ducts, common hepatic duct, and common bile ducts are unremarkable. [ADRENAL GLANDS]: Unremarkable. [KIDNEYS]: Normal enhancement without suspicious lesions or hydronephrosis. [VISUALIZED BOWEL]: Grossly unremarkable. [VASCULATURE]: Unremarkable. [LYMPHADENOPATHY]: No evidence for lymphadenopathy. [ASCITES]: Absent. [MUSCULOSKELETAL]: Bone marrow signal is normal. [OTHER]: None IMPRESSION: 1. Unremarkable MRI of the abdomen.
--- NOTE | 2025-06-13 17:39 | DVHINCON2 ---
Date of service: Jun 13, 2025 History of Present Illness 35 yo female who presents to the hospital with nausea/vomiting/diarrhea which started on Wednesday. Pt has mild abdominal pain throughout abdomen. Has been pas sing flatus, no bm today. Had 1 episode of emesis this morning Past Medical History epilepsy, anxiety, depression Past Surgical History lap tubal ligation Family History: Patient reports no known family medical history. Allergies: Coded Allergies: NO KNOWN ALLERGIES (Unverified , 06/11/25) Home Meds Reported Medications Metoclopramide HCl (Metoclopramide HCl) 5 Mg/Ml Inj, 5 MG IJ, INJ 06/11/25 Diphenhydramine Hcl (Diphenhydramine Hcl) 50 Mg Tab, 50 MG PO, TAB 06/11/25 Folic Xrdf-Ffichzfcvp-Ybznukin (Folbic) Tab, 1 TAB PO DAILY, #90 TAB 1 Refill 06/11/25 Dicyclomine Hcl (BENTYL CAPSULE) 10 Mg Cp, 1 CAP PO TID, #90 CAP 11 Refills 06/11/25 Loratadine (Claritin) 10 Mg Tab, 10 MG PO, TAB 06/11/25 Omeprazole (Gnp Omeprazole) 20 Mg Tab, 20 MG PO, TAB 06/11/25 Thiamine Hcl (VITAMIN B-1) 100 Mg Tb, 100 MG, TAB 06/11/25 Multiple Vitamin (Multivitamins) Tab, 1 TAB PO DAILY, #90 TAB 3 Refills 06/11/25 Aripiprazole (Abilify) 2 Mg Tab, 1 TAB PO HS, #30 TAB 2 Refills 06/11/25 Levetiracetam (KEPPRA TABLET) 500 Mg Tb, 500 MG PO BID, TAB 06/11/25 Aripiprazole (Aripiprazole) 5 Mg Tab, 1 TAB PO HS 06/11/25 Citalopram Hydrobromide (Citalopram Hydrobromide) 20 Mg Tab, 1 TAB PO DAILY 06/11/25 Lorazepam (Lorazepam) 1 Mg Tab, 1 TAB PO TIDP PRN 06/11/25 Current Medications Current Medications Medications (Trade) Dose Ordered Sig/Calderon Route PRN Reason Start Time Stop Time Status Last Admin Ketorolac Tromethamine (Toradol Injection) 30 mg Q6HPRN PRN IV MODERATE PAIN (4-6 PAIN SCALE) 06/13/25 15:15 06/18/25 15:14 06/13/25 15:58 Metoclopramide HCl (Reglan Injection) 10 mg Q8HPRN PRN IV NAUSEA / VOMITING 06/13/25 15:15 06/13/25 15:58 Levetiracetam 100 ml @ 400 mls/hr BID IV 06/13/25 22:00 Review of Systems neg unless mentioned in hpi Vital Signs Vital Signs Date Time Temp Pulse Resp B/P (MAP) Pulse Ox O2 Delivery O2 Flow Rate FiO2 06/13/25 17:00 97.5 65 18 105/63 (77) 98 97.5 06/13/25 08:00 Room Air* 0 21 Physical Exam gen; aaox3,nad cvs; palpable pulses lung; normal effort abd; soft mildly distended, no r r g, nttp ext; no edema Labs/Diagnostic Data Labs Test 06/12/25 05:35 06/11/25 11:29 06/11/25 11:18 Range/Units White Blood Count 4.5 4.4-10.8 10^3/uL Red Blood Count 4.13 4.0-5.20 10^6/uL Hemoglobin 12.3 12.2-16.2 g/dL Hematocrit 36.0 # 36.0-46.0 % Mean Corpuscular Volume 87.2 80.0-100.0 fL Mean Corpuscular Hemoglobin 29.8 28.0-32.0 pg Mean Corpuscular Hemoglobin Concent 34.2 32.0-36.0 g/dL Red Cell Distribution Width 13.1 11.8-14.3 % Platelet Count 229 140-450 10^3/uL Mean Platelet Volume 7.2 6.9-10.8 fL Neutrophils (%) (Auto) 48.3 37.0-80.0 % Lymphocytes (%) (Auto) 42.3 10.0-50.0 % Monocytes (%) (Auto) 8.9 0.0-12.0 % Eosinophils (%) (Auto) 0.2 0.0-7.0 % Basophils (%) (Auto) 0.3 0.0-2.0 % Neutrophils # (Auto) 2.2 1.6-8.6 10 ^3/uL Lymphocytes # (Auto) 1.9 0.4-5.4 10 ^3/uL Monocytes # (Auto) 0.4 0-1.3 10 ^3/uL Eosinophils # (Auto) 0 0-0.8 10 ^3/uL Basophils # (Auto) 0 0-0.2 10 ^3/uL Nucleated Red Blood Cells 0.1 % Sodium Level 142 136-145 mmol/L Potassium Level 4.5 3.5-5.1 mmol/L Chloride Level 110 H 98-107 mmol/L Carbon Dioxide Level 24 20-31 mmol/L Anion Gap 8 5-15 Blood Urea Nitrogen 8 L 9-23 mg/dL Creatinine 0.69 0.550-1.02 mg/dL Glomerular Filtration Rate Calc 116 >90 mL/min BUN/Creatinine Ratio 11.6 10.0-20.0 Serum Glucose 93 74-106 mg/dL Calcium Level 8.1 L 8.7-10.4 mg/dL Total Bilirubin 0.5 0.2-1.0 mg/dL Aspartate Amino Transferase (AST) 19 13-40 U/L Alanine Aminotransferase (ALT) 15 7-40 U/L Alkaline Phosphatase 65 46-116 U/L Total Protein 5.7 5.7-8.2 g/dL Albumin 3.5 3.2-4.8 g/dL Urine Color Light-yellow Yellow Urine Clarity Clear Clear Urine pH 6.0 5.0-9.0 Urine Specific [place] 1.009 1.001-1.035 Urine Protein Negative Negative Urine Ketones Negative Negative Urine Blood 1+ H Negative /uL Urine Nitrite Negative Negative Urine Bilirubin Negative Negative Urine Urobilinogen Normal Negative mg/dL Urine Leukocyte Esterase Trace Negative /uL Urine RBC 3 0 - 4 /hpf Urine Microscopic WBC 1 0-5 /HPF Urine Squamous Epithelial Cells Mod <5 /hpf Urine Bacteria Few H None Seen /hpf Urine Glucose Normal Normal mg/dL Lipase 42 12-53 U/L Assessment 35 yo female with n/v/diarrhea, possible enteritis vs ileus Plan/Recommendation pt is nttp on exam kub in am start cld adv diet as tolerated no surgical intervention warranted at this time Plan discussed with: Patient KRISTOFER SHAW MD Jun 13, 2025 17:39
[2025-06-13] MEDS: levETIRAcetam 500 mg/100ml 100 ML IV SCH (21:03)
[2025-06-14] VITALS (7 sets, daily range): BP systolic 96–121; BP diastolic 65–79; PULSE 65–77; RESP 16–19; TEMP 97.5–98.2; O2SAT 98–99
--- NOTE | 2025-06-14 05:32 | DVH ---
Exam: XY KUB ABDOMEN SINGLE VIEW Indication: ileus Comparison: CT CT AB PEL WO CON-NO ORAL OR IV on DOS: 06/11/25, CT CT AB PEL WO CON-NO ORAL OR IV on D OS: 05/15/25, CT CT AB PEL WO CON-NO ORAL OR IV on DOS: 04/24/25, CT CT AB PEL WITH IV CON ONLY on DOS: 09/17/24, XY KUB ABDOMEN SINGLE VIEW on DOS: 09/16/24 Technique: 1 radiographic views of the abdomen. Findings: Nonspecific bowel-gas pattern. Moderate volume colonic stool. There is no definite evidence for pneum operitoneum. No abnormal calcifications noted. Impression: Nonspecific bowel-gas pattern. Moderate volume colonic stool.
--- NOTE | 2025-06-14 14:00 | DVHPN2 ---
Progress Note Date Seen: Jun 14, 2025 Medical Necessity Reason Pt with a Central, PICC or Fol: No Subjective Patient reports: No new complaints Objective vital signs Vital Sign Date Time Temp Pulse Resp B/P (MAP) Pulse Ox O2 Delivery O2 Flow Rate FiO2 06/14/25 13:00 98.0 77 19 101/69 (80) 99 98.0 06/14/25 08:00 Room Air* 0 21 Total Intake and Output 06/13/25 06/13/25 06/14/25 15:00 23:00 07:00 Intake Total 600 ml 285 ml Balance 600 ml 285 ml medications Current Medications Medications Dose Ordered Sig/Calderon Route Start Time Stop Time Status Last Admin Dose Admin Acetaminophen/ Hydrocodone Bitart 1 tab Q4HP PRN PO 06/11/25 13:45 06/14/25 04:17 1 TAB Ondansetron HCl 4 mg Q4HP PRN IV 06/11/25 13:45 06/14/25 07:57 4 MG Docusate Sodium 100 mg BIDPRN PRN PO 06/11/25 13:45 Acetaminophen 650 mg Q6HP PRN PO 06/11/25 13:45 06/13/25 16:53 650 MG Citalopram Hydrobromide 20 mg DAILY PO 06/12/25 10:00 06/14/25 10:55 20 MG Patient Own Medication 1 tab HS PO 06/11/25 22:00 06/13/25 21:41 1 TAB Lorazepam 1 mg Q8HP PRN PO 06/11/25 14:15 Morphine Sulfate 2 mg Q4HPRN PRN IV 06/11/25 16:45 06/14/25 10:56 2 MG Sodium Chloride 1,000 ml @ 100 mls/hr Q10H IV 06/12/25 14:00 06/14/25 05:26 100 MLS/HR Ketorolac Tromethamine 30 mg Q6HPRN PRN IV 06/13/25 15:15 06/18/25 15:14 06/14/25 13:48 30 MG Metoclopramide HCl 10 mg Q8HPRN PRN IV 06/13/25 15:15 06/13/25 15:58 10 MG Levetiracetam 100 ml @ 400 mls/hr BID IV 06/13/25 22:00 06/14/25 10:55 400 MLS/HR Examination gen; aaox3,nad abd; soft mild distension, nttp, no r r g ext; no edema laboratory and microbiology Laboratory Tests 06/12/25 05:35 Test 06/12/25 05:35 Range/Units Serum Glucose 93 74-106 mg/dL Problem List/Assessment/Plan Problem List/Assessment/Plan 35 yo female with n/v pain axr and mri negative labs normal advance to fld advance diet as thompson no surgical intervention warranted at this time Plan discussed with: Other (Hospitalist) My Orders My Orders Orders - KRISTOFER SHAW MD Procedure Category Date Status Time Clear Liq Diet DIET 06/13/25 Transmitted Dinner Kub Abdomen Single XY 06/14/25 Resulted View 07:00 Full Liq Diet DIET 06/14/25 Transmitted Dinner Advance Diet As PERRY 06/14/25 Transmitted Tolerated 13:56 KRISTOFER SHAW MD Jun 14, 2025 14:00
--- NOTE | 2025-06-14 14:57 | DVHPN2 ---
Reviewed: Care Plan, H&P, Labs, Medications, Previous Orders, Radiology Changes from previous H/P or p: No Changes General: Per HPI Eyes: No Pain, No Vision change, No Conjunctivae inflammation, No Eyelid inflammation, No Other, No Redness ENT: No Ear pain, No Ear discharge, No Nose pain, No Nose discharge, No Nose congestion, No Mouth pain, No Mouth swelling, No Throat pain, No Throat swelling, No Other Cardiovascular: No Chest Pain, No Palpitations, No Orthopnea, No Paroxysmal Noc. Dyspnea, No Edema, No Lt Headedness, No Other Respiratory: No Cough, No Dry, No Shortness of breath, No SOB with excertion, No Wheezing, No Hemoptysis, No Pleuritic Pain, No Sputum, No Other Gastrointestinal: Nausea, Vomiting, Abdominal Pain (left upper quadrant that radiates to her back, and down her leg); No Diarrhea, No Constipation, No Melena, No Hematochezia, No Other Genitourinary: No Dysuria, No Frequency, No Incontinence, No Hematuria, No Retention, No Other Musculoskeletal: No other, No neck pain, No shoulder pain, No arm pain, No back pain, No hand pain, No leg pain, No foot pain Skin: No Rash, No Lesions, No Jaundice, No Bruising, No Other Objective Vitals Vital Signs Date Time Temp Pulse Resp B/P (MAP) Pulse Ox O2 Delivery O2 Flow Rate FiO2 06/14/25 13:00 98.0 77 19 101/69 (80) 99 98.0 06/14/25 08:00 Room Air* 0 21 Intake/Output Intake and Output 06/14/25 07:00 Intake Total 885 ml Balance 885 ml Intake Oral 285 ml IV Total 600 ml # Voids 7 General Appearance: Alert, Oriented X3, Cooperative Cardiovascular: Normal S1, Normal S2 Medications Current Medications Medications Dose Ordered Sig/Calderon Route Start Time Stop Time Status Last Admin Dose Admin Acetaminophen/ Hydrocodone Bitart 1 tab Q4HP PRN PO 06/11/25 13:45 06/14/25 04:17 1 TAB Ondansetron HCl 4 mg Q4HP PRN IV 06/11/25 13:45 06/14/25 07:57 4 MG Docusate Sodium 100 mg BIDPRN PRN PO 06/11/25 13:45 Acetaminophen 650 mg Q6HP PRN PO 06/11/25 13:45 06/13/25 16:53 650 MG Citalopram Hydrobromide 20 mg DAILY PO 06/12/25 10:00 06/14/25 10:55 20 MG Patient Own Medication 1 tab HS PO 06/11/25 22:00 06/13/25 21:41 1 TAB Lorazepam 1 mg Q8HP PRN PO 06/11/25 14:15 Morphine Sulfate 2 mg Q4HPRN PRN IV 06/11/25 16:45 06/14/25 10:56 2 MG Sodium Chloride 1,000 ml @ 100 mls/hr Q10H IV 06/12/25 14:00 06/14/25 05:26 100 MLS/HR Ketorolac Tromethamine 30 mg Q6HPRN PRN IV 06/13/25 15:15 06/18/25 15:14 06/14/25 13:48 30 MG Metoclopramide HCl 10 mg Q8HPRN PRN IV 06/13/25 15:15 06/13/25 15:58 10 MG Levetiracetam 100 ml @ 400 mls/hr BID IV 06/13/25 22:00 06/14/25 10:55 400 MLS/HR Laboratory Results Laboratory Tests 06/12/25 05:35 Urinalysis Test 06/11/25 11:29 Urine Color Light-yellow (Yellow) Urine Clarity Clear (Clear) Urine pH 6.0 (5.0-9.0) Urine Specific [place] 1.009 (1.001-1.035) Urine Protein Negative (Negative) Urine Ketones Negative (Negative) Urine Blood 1+ /uL (Negative) H Urine Nitrite Negative (Negative) Urine Bilirubin Negative (Negative) Urine Urobilinogen Normal mg/dL (Negative) Urine Leukocyte Esterase Trace /uL (Negative) Urine RBC 3 /hpf (0 - 4) Urine Microscopic WBC 1 /HPF (0-5) Urine Squamous Epithelial Cells Mod /hpf (<5) Urine Bacteria Few /hpf (None Seen) H Urine Glucose Normal mg/dL (Normal) Assessment/Plan Assessment/Plan Intractable abdominal pain, Possible enteritis, constipation, Seizures, Depression, Anxiety Headache suspected ileus vs SBO intractable nausea/vomiting 06/12/2025 advancing diet as tolerated Gen surg consulted if needed 06/13/2025 advancing diet when okay by Gen Surg still has significant abd pain and headache 06/14/2025: pt to have full liquid diet if tolerates well. can be discharged in AM Plan discussed with: Patient My Orders Orders - JENN ABBOTT DO Procedure Category Date Status Time Ketorolac Injection PHA 06/13/25 In Process (Toradol Injection) 15:15 Metoclopramide PHA 06/13/25 In Process Injection (Reglan 15:15 Levetiracetam 500 PHA 06/13/25 In Process Mg/100ml (Levetiraceta 22:00 Mri Abdomen [place] MRI 06/13/25 Resulted 15:09 Date of Service: Jun 14, 2025 Billing Provider: JENN ABBOTT DO Common Visit Codes: [id number] INP/OBS CARE(HIGH) JENN ABBOTT DO Jun 14, 2025 14:57
[2025-06-14] MEDS: DOCUSATE SOD 100 MG CAP PO PRN (16:36)
[2025-06-14] MEDS: LACTULOSE 20Gm/30ML SOLN PO SCH (22:08)
[2025-06-15] VITALS (7 sets, daily range): BP systolic 106–109; BP diastolic 66–76; PULSE 63–82; RESP 16–17; TEMP 97.6–98.5; O2SAT 96–98
[2025-06-15] MEDS ORDERED: LACT10PA2 PO ×2 (11:35→17:34)
--- NOTE | 2025-06-15 11:36 | DVHDS2 ---
Discharge Summary Date of Admission Jun 11, 2025 at 13:33 Date of Discharge: Jun 15, 2025 Labs/Diagnostic Data: Laboratory Results Test 06/12/25 05:35 06/11/25 11:29 06/11/25 11:18 White Blood Count 4.5 10^3/uL (4.4-10.8) Red Blood Count 4.13 10^6/uL (4.0-5.20) Hemoglobin 12.3 g/dL (12.2-16.2) Hematocrit 36.0 % (36.0-46.0) Mean Corpuscular Volume 87.2 fL (80.0-100.0) Mean Corpuscular Hemoglobin 29.8 pg (28.0-32.0) Mean Corpuscular Hemoglobin Concent 34.2 g/dL (32.0-36.0) Red Cell Distribution Width 13.1 % (11.8-14.3) Platelet Count 229 10^3/uL (140-450) Mean Platelet Volume 7.2 fL (6.9-10.8) Neutrophils (%) (Auto) 48.3 % (37.0-80.0) Lymphocytes (%) (Auto) 42.3 % (10.0-50.0) Monocytes (%) (Auto) 8.9 % (0.0-12.0) Eosinophils (%) (Auto) 0.2 % (0.0-7.0) Basophils (%) (Auto) 0.3 % (0.0-2.0) Neutrophils # (Auto) 2.2 10 ^3/uL (1.6-8.6) Lymphocytes # (Auto) 1.9 10 ^3/uL (0.4-5.4) Monocytes # (Auto) 0.4 10 ^3/uL (0-1.3) Eosinophils # (Auto) 0 10 ^3/uL (0-0.8) Basophils # (Auto) 0 10 ^3/uL (0-0.2) Nucleated Red Blood Cells 0.1 % Sodium Level 142 mmol/L (136-145) Potassium Level 4.5 mmol/L (3.5-5.1) Chloride Level 110 mmol/L (98-107) Carbon Dioxide Level 24 mmol/L (20-31) Anion Gap 8 (5-15) Blood Urea Nitrogen 8 mg/dL (9-23) Creatinine 0.69 mg/dL (0.550-1.02) Glomerular Filtration Rate Calc 116 mL/min (>90) BUN/Creatinine Ratio 11.6 (10.0-20.0) Serum Glucose 93 mg/dL (74-106) Calcium Level 8.1 mg/dL (8.7-10.4) Total Bilirubin 0.5 mg/dL (0.2-1.0) Aspartate Amino Transferase (AST) 19 U/L (13-40) Alanine Aminotransferase (ALT) 15 U/L (7-40) Alkaline Phosphatase 65 U/L (46-116) Total Protein 5.7 g/dL (5.7-8.2) Albumin 3.5 g/dL (3.2-4.8) Urine Color Light-yellow (Yellow) Urine Clarity Clear (Clear) Urine pH 6.0 (5.0-9.0) Urine Specific [place] 1.009 (1.001-1.035) Urine Protein Negative (Negative) Urine Ketones Negative (Negative) Urine Blood 1+ /uL (Negative) Urine Nitrite Negative (Negative) Urine Bilirubin Negative (Negative) Urine Urobilinogen Normal mg/dL (Negative) Urine Leukocyte Esterase Trace /uL (Negative) Urine RBC 3 /hpf (0 - 4) Urine Microscopic WBC 1 /HPF (0-5) Urine Squamous Epithelial Cells Mod /hpf (<5) Urine Bacteria Few /hpf (None Seen) Urine Glucose Normal mg/dL (Normal) Lipase 42 U/L (12-53) Other Laboratory Tests 06/12/25 05:35 Brief Hx & Hospital Course: Intractable abdominal pain, Possible enteritis, constipation, Seizures, Depression, Anxiety Headache suspected ileus vs SBO intractable nausea/vomiting 06/12/2025 advancing diet as tolerated Gen surg consulted if needed 06/13/2025 advancing diet when okay by Gen Surg still has significant abd pain and headache 06/14/2025: pt to have full liquid diet if tolerates well. can be discharged in AM 06/15/2025: discharged to home Condition at Discharge: Fair Final Diagnosis/Problems List see above Discharge Disposition: Home Discharge Instruct/Medications Diet: Cardiac 2g Na,low cholest Activity: No Restrictions, As Tolerated Scheduled Aripiprazole (Aripiprazole), 1 TAB PO HS, (Reported) Aripiprazole (Abilify), 1 TAB PO HS, (Reported) Citalopram Hydrobromide (Citalopram Hydrobromide), 1 TAB PO DAILY, (Reported) Dicyclomine Hcl (Bentyl Capsule), 1 CAP PO TID, (Reported) Folic Xaav-Cmwdatnwkc-Yrdjxxje (Folbic), 1 TAB PO DAILY, (Reported) Levetiracetam (Keppra Tablet), 500 MG PO BID, (Reported) Multiple Vitamin (Multivitamins), 1 TAB PO DAILY, (Reported) Scheduled PRN Lorazepam (Lorazepam), 1 TAB PO TIDP PRN, (Reported) Miscellaneous Medications Diphenhydramine Hcl (Diphenhydramine Hcl), 50 MG PO, (Reported) Loratadine (Claritin), 10 MG PO, (Reported) Metoclopramide HCl (Metoclopramide HCl), 5 MG IJ, (Reported) Omeprazole (Gnp Omeprazole), 20 MG PO, (Reported) Thiamine Hcl (Vitamin B-1), 100 MG, (Reported) Discharge Statement: "Patient was advised to return to the ER or call 911 if any headaches, dizziness, shortness of breath, chest pain, abdominal pain, bleeding, fevers, or worsening of medical condition. Patient was counseled about treatment plan, medications, possible side effects, patientverbalized understanding. All questions were answered to the best of my ability. This discharge took greater then 30 minutes in planning, reviewing documentation, counseling the patient, and discussing with other team members." ASSESSMENT ASSESSMENT Assessment JENN ABBOTT DO Jun 15, 2025 11:36
--- NOTE | 2025-06-16 08:54 | DVHPN2 ---
Progress Note Date Seen: Jun 15, 2025 Medical Necessity Reason Pt with a Central, PICC or Fol: No Subjective Patient reports: No new complaints, Feels better Changes from previous H/P or p: No Changes Objective vital signs Vital Sign Date Time Temp Pulse Resp B/P (MAP) Pulse Ox O2 Delivery O2 Flow Rate FiO2 06/15/25 13:00 97.6 77 16 107/75 (86) 98 97.6 06/15/25 08:00 Room Air* 0 21 Total Intake and Output 06/15/25 06/15/25 06/16/25 15:00 23:00 07:00 Intake Total 400 ml Balance 400 ml Examination gen; aaox3,nad abd; soft nd nttp no r r g ext; no edema laboratory and microbiology Laboratory Tests 06/12/25 05:35 Test 06/12/25 05:35 Range/Units Serum Glucose 93 74-106 mg/dL Problem List/Assessment/Plan Problem List/Assessment/Plan 35 yo female with n/v pain axr and mri negative labs normal advance to fld advance diet as thompson no surgical intervention warranted at this time Plan discussed with: Patient KRISTOFER SHAW MD Jun 16, 2025 08:54
== END 2025-06-15 18:08 | disposition home or self-care (01) | DRG 249 ==
LOC: ER 10:25 → OVERFLOW 13:33 → ER 13:38 → EAST 20:20
PROVIDERS: ADMIT Internal Medicine; ATTEND Internal Medicine
DX: A09 Infectious gastroenteritis and colitis, unspecified (principal); K56.699 Other intestinal obstruction unspecified as to partial versus complete obstruction; F32.A Depression, unspecified; K59.00 Constipation, unspecified; F41.9 Anxiety disorder, unspecified; F17.210 Nicotine dependence, cigarettes, uncomplicated; G40.909 Epilepsy, unspecified, not intractable, without status epilepticus; Z79.899 Other long term (current) drug therapy
CPT/HCPCS: 36415; 74018; 74176; 74183; 80053; 81001; 83690; 85025; 96361; 96374; 96375; G0378; J1885; J2405; J2470; J3490

== ENCOUNTER 2025-07-05 17:34 | Emergency (ER) | payer MEDICAID ==
[~2025-07-05] VITALS: Ht 165.1 cm; Wt 74.4 kg
[~2025-07-05 17:34] MED LIST: ARIP2TAB PO; ARIP5TAB22 PO; CITA-77 PO; DICY10CA PO; DIPH50TA9 PO; FOLITAB22 PO; KEP500T PO; LACT10PA2 PO; LORA-1123 PO; LORA-622 PO; METO5INJ IJ; MULT-1018 PO; OMEP20TA PO; THIA100T10
[2025-07-05 17:36] VITALS: BP 102/71; PULSE 99; RESP 18; TEMP 97.3; O2SAT 97
[2025-07-05 18:31] LABS: Hematocrit 38.2 % (36.0-46.0); Hemoglobin 13.2 g/dL (12.2-16.2); Mean Corpuscular Hemoglobin 29.1 pg (28.0-32.0); Mean Corpuscular Volume 84.0 fL (80.0-100.0); Nucleated Red Blood Cells % 0.0 %
--- NOTE | 2025-07-05 18:42 | DVH ---
Exam: CT CT AB PEL WO CON-NO ORAL OR IV History: abd pain n/v Comparison Study: CT CT AB PEL WO CON-NO ORAL OR IV on DOS: 06/11/25 TECHNIQUE: Multidetector CT of the abdomen and pelvis without IV contrast. Axial, coronal and sagitta l multiplanar reformats were obtained from the axial data set by the technologist. Radiation Dose Information: CT Dose: CTDI volume is 10.06 mGy. Dose-length product is 497.76 mGy*cm FINDINGS: The lung bases are clear. Partially visualized heart is unremarkable. Mild hepatosplenomegaly. Otherwise, liver, spleen, pancreas and adrenal glands unremarkable. Possib le sludge within the gallbladder. Otherwise, the gallbladder is unremarkable. Kidneys and ureters unremarkable. Urinary bladder is moderately distended. Otherwise unremarkable. Uterus and adnexa are unremarkable. Stomach is unremarkable. Fluid-filled nondistended small bowel loops. Appendix is unremarkable. Moder ate amount of fecal material within the colon. No evidence of intraperitoneal free air or free fluid. No evidence of aortic aneurysm. No significant lymphadenopathy. Soft tissues unremarkable. No evidence of acute osseous abnormalities. Sclerotic focus over the righ t pelvic bone which may represent a small bone island. IMPRESSION: No evidence of acute abdominopelvic abnormalities. Possible sludge within the gallbladder. The small bowel loops are fluid-filled and nondistended. Moderate amount of fecal material within the colon. Moderate distention of the urinary bladder.
[2025-07-05 18:49] LABS: Alanine Aminotransferase 13 U/L (7-40); Albumin 4.4 g/dL (3.2-4.8); Alkaline Phosphatase 84 U/L (46-116); Anion Gap 9 (5-15); BUN/Creatinine Ratio 8.9 (10.0-20.0); Bilirubin, Total 0.3 mg/dL (0.2-1.0); Blood Urea Nitrogen 7 mg/dL (9-23); Calcium 9.6 mg/dL (8.7-10.4); Carbon Dioxide 28 mmol/L (20-31); Chloride 102 mmol/L (98-107); Glucose 85 mg/dL (74-106); Lipase 28 U/L (12-53); Potassium 3.8 mmol/L (3.5-5.1); Sodium 139 mmol/L (136-145); Total Protein 7.2 g/dL (5.7-8.2)
[2025-07-05 19:14] LABS: Urine Protein, UAD Negative (Negative)
[2025-07-05 19:23] LABS: Opiate Scree,Urine Neg (NEGATIVE)
[2025-07-05 19:24] LABS: Amphetamine Screen, Urine Neg (NEGATIVE); Barbiturate Scree,Urine Neg (NEGATIVE); Benzodiazephine Screen, Urine Neg (NEGATIVE); Cannabinoid Screen, Urine Neg (NEGATIVE); Cocaine Screen, Urine Neg (NEGATIVE); Phencyclidine Screen, Urine Neg (NEGATIVE)
--- NOTE | 2025-07-06 11:24 | ED.PDOC ---
GI ASSESSMENT HPI Comments 55-year-old female who presents to the ED for chief complaint of abdominal pain. Patient states she has been having abdominal pain intermittently every two three weeks. Patient states the pain is located by her left lower quadrant radiating down to the left lower pelvis. Patient states the pain is intermittent, worse with food or drink, with no associated relieving factors. Patient states she has been having associated nausea vomiting headache dizziness and intermittent hot and cold sweats. Patient was discharged on 06/11 after being hospitalized with similar symptoms. Patient was discharged with multiple medications and has been taking them with minimal relief. Patient has been taking Reglan, Bentyl, Zofran, and omeprazole but states she has had only minimal relief of symptoms. Patient states in the past when she has had these symptoms she was diagnosed with pancreatitis and ileitis. Patient now in the ED states she is in pain and states she like pain medications. Patient in the ED has noticed stable vitals. Patient otherwise denies any other symptoms. Past medical history: Seizures, depression, Patient was discharged on 06/11/2025 with the following working diagnosis,intractable abdominal pain, Possible enteritis, constipation, Seizures, Depression, AnxietyHeadachesuspected ileus vs SBO, intractable nausea/vomiting Past surgical history: Tubal ligation Medications, Reglan, Bentyl, Zofran, omeprazole Social history; endorses tobacco use, denies ETOH use, denies drug use Allergies: NKDA PEDERSON: HPI: Poor Historian. REVIEW OF SYSTEMS: CONSTITUTIONAL: Denies acute: fever, diaphoresis, chills, generalized weakness. HEAD: Denies acute: headache, photophobia Eyes: Denies acute: Double vision, vision loss, eye pain, eye discharge. EARS: Denies acute: tinnitus, hearing loss, ear discharge, ear pain, THROAT: Denies acute: sore throat, swelling, difficulty swallowing , pain with swallowing, change in voice. NECK: Denies acute: neck pain, neck swelling, stiff neck. HEART: Denies acute : chest pain, palpitations, LUNGS: Denies acute: SOB, wheezing, cough, hemoptysis ABDOMEN: Denies acute: Vomiting, diarrhea, melena , hematemesis, hematochezia SKIN: Denies acute: rash, redness, lesions, itchiness. EXTREMITIES: Denies acute: calf pain, numbness, tingling, weakness, denies pain in extremity. Denies acute: Low back pain. Neuro: Denies acute: focal neurological deficit, motor or sensory focal neurological deficit, tremors, seizure like activity, confusion, dizziness, change in mental status, loss of bowel or bladder function, cauda equina like symptoms. : Denies acute: dysuria, hematuria, flank pain, increase in urinary frequency. PSYCH: Denies acute: hallucination, suicidal ideation, homicidal ideation. FEMALE: Denies acute: abnormal vaginal bleeding, foul odor, unusual discharge. PHYSICAL EXAM: General: ------mild--acute distress, awake and alert. Head: normocephalic, atraumatic. Neck: supple, trachea is midline, no swelling. Throat: Normal phonation. Eyes:, no erythema, no purulent discharge, no proptosis, no icterus. Heart: regular rate, regular rhythm, no significant murmur appreciated. Lungs: no apparent respiratory distress, Able to speak in full sentences. No wheezing, no rhonchi, no crackles. No stridors Clear to auscultation bilaterally. Abdomen: Left lower quadrant and epigastric tender to palpation, non distended, soft, no guarding, no rebound, + bowel sounds. Neuro: Awake, Alert, oriented to name, self, situation, follows commands GCS=15. Speech is normal. Skin: no petechia, no purpura, no cyanosis, non-pale, not jaundice. Lower extremities: --no - Pitting edema no deformity, no focal swelling, no calf TTP. Makes eye contact. moves all four extremities. Face: no apparent facial droop. Ambulating in the ED independently. ED COURSE: DISCLAIMER: This medical document was created using an electronic medical record system with voice recognition software and computerized dictation system. Although this document has been carefully reviewed, there might still be some phonetic and typographical errors. Occasional wrong-word or "sound-alike" substitutions may have occurred due to the inherent limitations of voice recognition software. These areas are purely typographical due to imperfections of the software programs and do not reflect any compromise in the patient's medical care. Please read the chart carefully and recognize, using context, where these substitutions have occurred. Chief Complaint: Nausea/Vomiting Time Seen by MD: 19:04 Reviewed Notes: Medications, Allergies Allergies: Coded Allergies: NO KNOWN ALLERGIES (Unverified , 06/11/25) Home Meds Active Scripts Lactulose (Lactulose) 10 Gm Raz, 10 GM PO BID for 5 Days, #1 PACK Prov:YANIRA WAGGONER BARREL LINE OPERATOR 06/15/25 Reported Medications Metoclopramide HCl (Metoclopramide HCl) 5 Mg/Ml Inj, 5 MG IJ, INJ 06/11/25 Diphenhydramine Hcl (Diphenhydramine Hcl) 50 Mg Tab, 50 MG PO, TAB 06/11/25 Folic Zvwv-Fyqgizbsmp-Iphbdxoy (Folbic) Tab, 1 TAB PO DAILY, #90 TAB 1 Refill 06/11/25 Dicyclomine Hcl (BENTYL CAPSULE) 10 Mg Cp, 1 CAP PO TID, #90 CAP 11 Refills 06/11/25 Loratadine (Claritin) 10 Mg Tab, 10 MG PO, TAB 06/11/25 Omeprazole (Gnp Omeprazole) 20 Mg Tab, 20 MG PO, TAB 06/11/25 Thiamine Hcl (VITAMIN B-1) 100 Mg Tb, 100 MG, TAB 06/11/25 Multiple Vitamin (Multivitamins) Tab, 1 TAB PO DAILY, #90 TAB 3 Refills 06/11/25 Aripiprazole (Abilify) 2 Mg Tab, 1 TAB PO HS, #30 TAB 2 Refills 06/11/25 Levetiracetam (KEPPRA TABLET) 500 Mg Tb, 500 MG PO BID, TAB 06/11/25 Aripiprazole (Aripiprazole) 5 Mg Tab, 1 TAB PO HS 06/11/25 Citalopram Hydrobromide (Citalopram Hydrobromide) 20 Mg Tab, 1 TAB PO DAILY 06/11/25 Lorazepam (Lorazepam) 1 Mg Tab, 1 TAB PO TIDP PRN 06/11/25 Information Source: Patient Mode of Arrival: Ambulatory Past Medical History PAST MEDICAL HISTORY: Depression, Seizures 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 Was a procedure done?: No GI differential Dx Differential Diagnosis: Other (DDX include Diverticulitis, colitis, gastroenteritis, acute abdomen, SBO, enteritis, constipation, volvulus, appendicitis, Gallbladder disease, choledocolithiasis, ascending cholangitis, pancreatitis, intraAbdominal mass/neoplasm, hepatitis, UTI, pylonephritis, kidney stone, aneurysm, dissection, Inflammatory bowel disease, gastroparesis, ischemic bowel,,,,,,Food poisoning, bacterial/parasitic/viral etiology, trauma, diabetes DKA,ovarian torsion, ovarian cyst/mass, tubo-ovarian abscess, , ectopic , PID, STD.) X-Ray, Labs, Meds, VS Vital Signs Date Time Temp Pulse Resp B/P (MAP) Pulse Ox O2 Delivery O2 Flow Rate FiO2 07/05/25 17:36 97.3 99 18 102/71 97 97.3 Lab Test 07/05/25 18:35 07/05/25 18:20 Range/Units Urine Color Light-yellow Yellow Urine Clarity Clear Clear Urine pH 6.5 5.0-9.0 Urine Specific Swengel 1.007 1.001-1.035 Urine Protein Negative Negative Urine Ketones Negative Negative Urine Blood Negative Negative /uL Urine Nitrite Negative Negative Urine Bilirubin Negative Negative Urine Urobilinogen Normal Negative mg/dL Urine Leukocyte Esterase Negative Negative /uL Urine RBC 1 0 - 4 /hpf Urine Microscopic WBC 2 0-5 /HPF Urine Squamous Epithelial Cells Few <5 /hpf Urine Bacteria Few H None Seen /hpf Urine Glucose Normal Normal mg/dL Urine Opiates Screen Neg NEGATIVE Urine Fentanyl Screen Neg NEGATIVE Urine Barbiturates Screen Neg NEGATIVE Urine Phencyclidine Screen Neg NEGATIVE Urine Amphetamines Screen Neg NEGATIVE Urine Benzodiazepines Screen Neg NEGATIVE Urine Cocaine Screen Neg NEGATIVE Urine Cannabinoids Screen Neg NEGATIVE White Blood Count 6.3 4.4-10.8 10^3/uL Red Blood Count 4.55 4.0-5.20 10^6/uL Hemoglobin 13.2 12.2-16.2 g/dL Hematocrit 38.2 36.0-46.0 % Mean Corpuscular Volume 84.0 80.0-100.0 fL Mean Corpuscular Hemoglobin 29.1 28.0-32.0 pg Mean Corpuscular Hemoglobin Concent 34.6 32.0-36.0 g/dL Red Cell Distribution Width 13.0 11.8-14.3 % Platelet Count 296 140-450 10^3/uL Mean Platelet Volume 7.1 6.9-10.8 fL Neutrophils (%) (Auto) 57.6 37.0-80.0 % Lymphocytes (%) (Auto) 35.1 10.0-50.0 % Monocytes (%) (Auto) 6.5 0.0-12.0 % Eosinophils (%) (Auto) 0.3 0.0-7.0 % Basophils (%) (Auto) 0.5 0.0-2.0 % Neutrophils # (Auto) 3.6 1.6-8.6 10 ^3/uL Lymphocytes # (Auto) 2.2 0.4-5.4 10 ^3/uL Monocytes # (Auto) 0.4 0-1.3 10 ^3/uL Eosinophils # (Auto) 0 0-0.8 10 ^3/uL Basophils # (Auto) 0 0-0.2 10 ^3/uL Nucleated Red Blood Cells 0.0 % Sodium Level 139 136-145 mmol/L Potassium Level 3.8 3.5-5.1 mmol/L Chloride Level 102 98-107 mmol/L Carbon Dioxide Level 28 20-31 mmol/L Anion Gap 9 5-15 Blood Urea Nitrogen 7 L 9-23 mg/dL Creatinine 0.79 0.550-1.02 mg/dL Glomerular Filtration Rate Calc 100 >90 mL/min BUN/Creatinine Ratio 8.9 L 10.0-20.0 Serum Glucose 85 74-106 mg/dL Lactic Acid Level 0.9 0.4-2.0 mmol/L Calcium Level 9.6 8.7-10.4 mg/dL Total Bilirubin 0.3 0.2-1.0 mg/dL Aspartate Amino Transferase (AST) 16 13-40 U/L Alanine Aminotransferase (ALT) 13 7-40 U/L Alkaline Phosphatase 84 46-116 U/L Total Protein 7.2 5.7-8.2 g/dL Albumin 4.4 3.2-4.8 g/dL Lipase 28 12-53 U/L [facility] [id number] [place] [id number] Ph: [phone] DIAGNOSTIC IMAGING Diagnostic Imaging Report : [id number] Signed PATIENT: RAFI PEDERSON ACCT: [id number] UNIT: [id number] : 1990 LOC: ER ROOM / BED: / AGE / SEX: 35 / F ADM STATUS: REG ER SERVICE [id number] ORDERING PHYSICIAN: AYDEE DOWLING DO PROCEDURE(s): ABPL - CT AB PEL WO CON-NO ORAL OR IV REASON: abd pain n/v ORDER NUMBER(s): [id number], ACCESSION NUMBER(s): [id number] Exam: CT CT AB PEL WO CON-NO ORAL OR IV History: abd pain n/v Comparison Study: CT CT AB PEL WO CON-NO ORAL OR IV on DOS: 06/11/25 TECHNIQUE: Multidetector CT of the abdomen and pelvis without IV contrast. Axial, coronal and sagittal multiplanar reformats were obtained from the axial data set by the technologist. Radiation Dose Information: CT Dose: CTDI volume is 10.06 mGy. Dose-length product is 497.76 mGy*cm FINDINGS: The lung bases are clear. Partially visualized heart is unremarkable. Mild hepatosplenomegaly. Otherwise, liver, spleen, pancreas and adrenal glands unremarkable. Possible sludge within the gallbladder. Otherwise, the gallbladder is unremarkable. Kidneys and ureters unremarkable. Urinary bladder is moderately distended. Otherwise unremarkable. Uterus and adnexa are unremarkable. Stomach is unremarkable. Fluid-filled nondistended small bowel loops. Appendix is unremarkable. Moderate amount of fecal material within the colon. No evidence of intraperitoneal free air or free fluid. No evidence of aortic aneurysm. No significant lymphadenopathy. Soft tissues unremarkable. No evidence of acute osseous abnormalities. Sclerotic focus over the right pelvic bone which may represent a small bone isl and. IMPRESSION: No evidence of acute abdominopelvic abnormalities. Possible sludge within the gallbladder. The small bowel loops are fluid-filled and nondistended. Moderate amount of fecal material within the colon. Moderate distention of the urinary bladder. ATED BY: NEENA CHAVARRIA DO DICTATED DATE/TIME: 07/05/251839 SIGNED BY: NEENA CHAVARRIA DO SIGNED DATE/TIME: 07/05/251839 CC: Time of 1ST Reevaluation: 19:35 Reevaluation 1ST: Unchanged Patient Education/Counseling: Diagnosis, Treatment Family Education/Counseling: No Family Present Comments MDM: patient presented with the above HPI.---recurrent abdominal pain---workup was initiated. patient was found with the above mentioned diagnosis. the following medications were ordered: please refer to order lists of meds and tests obtained by myself Dr. Dowling. Patient ED course and VS have been stabilized. Patient has been reassessed in the ED and remained in a stable condition. Pertinent incidental findings were discussed with the patient and/or family. Patient/family voices understanding and is agreeable with plan. Patient has been observed in the ED adequate length of time to insure improvement/stability. Escalation of care considered: Consideration of escalation to observation or admission CT scan of the abdomen and pelvis was obtained. Patient stated she was able to void but urine after the CT scan was obtained. Denies any symptoms of urinary retention. Patient was DISCHARGED home in a stable condition. All the reports of any imaging studies that were ordered by myself were reviewed by myself. 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 Hoist Operator (07/05/25 ) Ct Ab Pel Wo Con-No Oral Or Iv (07/05/25 17:58) Bladder Scan (07/05/25 ) Vital Signs Date Time Temp Pulse Resp B/P (MAP) Pulse Ox O2 Delivery O2 Flow Rate FiO2 07/05/25 17:36 97.3 99 18 102/71 97 97.3 Laboratory Tests Test 07/05/25 18:20 Lactic Acid Level 0.9 mmol/L (0.4-2.0) White Blood Count 6.3 10^3/uL (4.4-10.8) Departure 1 Departure Time of Disposition: 20:14 Impression: Primary Impression: Recurrent abdominal pain Additional Impression: Constipation Disposition: 01 HOME / SELF CARE / HOMELESS Condition: Stable Additional Instructions: Additional instructions: Please read all instructions provided in this packet carefully. You MUST follow-up with your primary care/family doctor in 1 to 2 days. If you are unable to see your primary care/family doctor, please return to our emergency room for re-assessment and re-evaluation in 1 to 2 days. Return to the emergency room here in our facility or to the nearest ER [facility] if your symptoms change or worsen. CONSULTATIONS: you MUST Follow-up for consultation as soon as possible with: Dr.-OB Painter doctor and gastroenterology in 1-2 days. Please call for appointmen t. You MUST call the consultants office yourself to make an appointment. You may need to arrange that through your insurance and/or your primary/family doctor. If you are unable to see the claims consultant in 1 to 2 days, you must return to our emergency room (or any other ER of your choice) for re-assessment and re- evaluation. Adequate fluid hydration. Although you have been discharged from the Emergency Department, this does not mean that you have a "clean bill of health". No definitive diagnosis for your symptoms has been made today. It is possible that you are in the process of developing a serious illness. This is why you must return to the ED without fail if any new or worsening symptoms develop. Increase fiber intake. Liquid diet in next 72 hours. Below is a copy of your radiological report for follow up: [place] [address] Ph: [phone] DIAGNOSTIC IMAGING Diagnostic Imaging Report : [id number] Signed PATIENT: RAFI PEDERSON ACCT: [id number] UNIT: [id number] : 1990 LOC: ER ROOM / BED: / AGE / SEX: 35 / F ADM STATUS: REG ER SERVICE [id number] ORDERING PHYSICIAN: AYDEE DOWLING DO PROCEDURE(s): ABPL - CT AB PEL WO CON-NO ORAL OR IV REASON: abd pain n/v ORDER NUMBER(s): [id number], ACCESSION NUMBER(s): [id number] Exam: CT CT AB PEL WO CON-NO ORAL OR IV History: abd pain n/v Comparison Study: CT CT AB PEL WO CON-NO ORAL OR IV on DOS: 06/11/25 TECHNIQUE: Multidetector CT of the abdomen and pelvis without IV contrast. Axial, coronal and sagittal multiplanar reformats were obtained from the axial data set by the technologist. Radiation Dose Information: CT Dose: CTDI volume is 10.06 mGy. Dose-length product is 497.76 mGy*cm FINDINGS: The lung bases are clear. Partially visualized heart is unremarkable. Mild hepatosplenomegaly. Otherwise, liver, spleen, pancreas and adrenal glands unremarkable. Possible sludge within the gallbladder. Otherwise, the gallbladder is unremarkable. Kidneys and ureters unremarkable. Urinary bladder is moderately distended. Otherwise unremarkable. Uterus and adnexa are unremarkable. Stomach is unremarkable. Fluid-filled nondistended small bowel loops. Appendix is unremarkable. Moderate amount of fecal material within the colon. No evidence of intraperitoneal free air or free fluid. No evidence of aortic aneurysm. No significant lymphadenopathy. Soft tissues unremarkable. No evidence of acute osseous abnormalities. Sclerotic focus over the right pelvic bone which may represent a small bone island. IMPRESSION: No evidence of acute abdominopelvic abnormalities. Possible sludge within the gallbladder. The small bowel loops are fluid-filled and nondistended. Moderate amount of fecal material within the colon. Moderate distention of the urinary bladder. ATED BY: NEENA CHAVARRIA DO DICTATED DATE/TIME: 07/05/251839 SIGNED BY: NEENA CHAVARRIA DO SIGNED DATE/TIME: 07/05/251839 CC: Discharged With: Self Critical Care Note Critical Care Time?: No I personally scribed for AYDEE DOWLING DO ([email or web address]) on 07/05/25 at 19:05. Electronically submitted by Balaji Ramos ([email or web address]). I personally scribed for AYEDE DOWLING DO ([email or web address]) on 07/05/25 at 19:21. Electronically submitted by Balaji Ramos ([email or web address]). AYDEE DOWLING DO Jul 05, 2025 19:05
== END 2025-07-05 23:46 | disposition left against medical advice (07) ==
LOC: ER 17:36
DX: K59.00 Constipation, unspecified (principal); R10.32 Left lower quadrant pain; F17.210 Nicotine dependence, cigarettes, uncomplicated; F32.A Depression, unspecified; Z79.899 Other long term (current) drug therapy; Z87.19 Personal history of other diseases of the digestive system; Z98.51 Tubal ligation status
CPT/HCPCS: 36415; 74176; 80053; 80307; 81001; 83605; 83690; 85025